=== PATIENT | male | born 1950 | race Caucasian/White ===

== ENCOUNTER 2021-04-04 16:10 | Inpatient (IN) | payer SELFPAY ==
[~2021-04-04] VITALS: Ht 175.3 cm; Wt 53.6 kg
[2021-04-04] MEDS ORDERED: NS 1,000 ML IV ONE (16:35)
[2021-04-04 16:53] LABS: BASO % 0.1 % (0.0-1.0); EOS % 0.1 % (0.0-3.0); HEMATOCRIT 31.4 % (42.0-52.0); HEMOGLOBIN 11.2 g/dl (13.5-17.5); LYMPH # 1.6 10^3/uL (1.5-5.0); LYMPH % 13.9 % (24.0-44.0); MEAN CORPUSCULAR HEMOGLOBIN 31.5 pg (27.0-33.0); MEAN CORPUSCULAR HGB CONC 35.7 g/dl (32.0-36.5); MEAN CORPUSCULAR VOLUME 88.2 fl (80.0-96.0); MONO # 0.8 10^3/uL (0.0-0.8); MONO % 6.7 % (2.0-8.0); NEUTROPHILS # 9.2 10^3/uL (1.5-8.5); NEUTROPHILS % 78.7 % (36.0-66.0); PLATELET COUNT, AUTOMATED 288 10^3/uL (150-450); RED BLOOD COUNT 3.56 10^6/uL (4.30-6.10); WHITE BLOOD COUNT 11.7 10^3/uL (4.0-10.0)
--- NOTE | 2021-04-04 17:28 | ECGEPIP ---
[facility] - ED Test Date: 2021-04-04 Pat Name: JEREMI TOMLIN Department: Room: - Gender: Male Barn Hand: GERMAIN : 1950 Requested By: STEPHANIE CURRAN Order Number: [id number] Reading MD: Cordelia Han Measurements Intervals Wiseman Rate: 70 P: 80 OK: 130 QRS: -62 QRSD: 122 T: 40 QT: 384 QTc: 414 Interpretive Statements Normal sinus rhythm Left axis deviation Right bundle branch block Possible Anteroseptal infarct , age undetermined NSTTW abnormalities No prior Electronically Signed on 04-04-2021 17:28:30 EST by Cordelia Han
[2021-04-04 17:34] LABS: ACETAMINOPHEN LEVEL < 2.0 UG/ML (10.0-30.0); ALBUMIN 1.9 GM/DL (3.2-5.2); ALT/SGPT 23 U/L (12-78); BILIRUBIN,DIRECT 0.2 MG/DL (0.0-0.2); BILIRUBIN,TOTAL 0.5 MG/DL (0.2-1.0); SALICYLATE LEVEL < 1.7 MG/DL (5.0-30.0); TOTAL PROTEIN 6.3 GM/DL (6.4-8.2)
[2021-04-04 17:35] LABS: ETHYL ALCOHOL (ETHANOL) < 0.003 % (0.000-0.010)
--- NOTE | 2021-04-04 17:35 | REP ---
INDICATION: Altered Mental Status. COMPARISON: None. TECHNIQUE: Portable AP chest image was obtained. FINDINGS: There is pleural-parenchymal scarring in both lung apices. The lungs are otherwise clear. The heart borders and mediastinum are normal. The visualized abdomen is unremarkable. IMPRESSION: No evidence of acute cardiopulmonary pathology. <Electronically signed by Donny Wells > 04/04/21 [id number]
--- OUTSIDE RECORDS SUMMARY | 2021-04-04 17:58 | CCD ---
Author Author [facility] Address Unknown Phone Unavailable Support Name Relationship Address Phone RE Next Of Kin Unknown Unavailable IGLESIA TIJERINA Next Of Kin [address] [place] [address] Re-disclosure Warning The records that you are about to access may contain information from federally-assisted alcohol or drug abuse programs. If such information is present, then the following federally mandated warning applies: This information has been disclosed to you from records protected by federal confidentiality rules (42 CFR part 2). The federal rules prohibit you from making any further disclosure of this information unless further disclosure is expressly permitted by the written consent of the person to whom it pertains or as otherwise permitted by 42 CFR part 2. A general authorization for the release of medical or other information is NOT sufficient for this purpose. The Federal rules restrict any use of the information to criminally investigate or prosecute any alcohol or drug abuse patient.The records that you are about to access may contain highly sensitive health information, the redisclosure of which is protected by Article 27-F of the [facility] Public Health law. If you continue you may have access to information: Regarding HIV / AIDS; Provided by facilities licensed or operated by the [facility] Office of Mental Health; or Provided by the [facility] Office for People With Developmental Disabilities. If such information is present, then the following [facility] mandated warning applies: This information has been disclosed to you from confidential records which are protected by state law. State law prohibits you from making any further disclosure of this information without the specific written consent of the person to whom it pertains, or as otherwise permitted by law. Any unauthorized further disclosure in violation of state law may result in a fine or assisted sentence or both. A general authorization for the release of medical or other information is NOT sufficient authorization for further disc losure. Medications No Information Insurance Providers Payer name Policy type / Coverage type Policy ID Covered libertarian ID Covered libertarian's relationship to osorio Policy Osorio Plan Information SELF PAY SP Problems, Conditions, and Diagnoses No Information Surgeries/Procedures No Information Results No Information Social History No Information
[2021-04-04 18:00] LABS: OSMOLALITY SERUM 290 MOSM/KG (280-301)
--- NOTE | 2021-04-04 18:16 | REPVR ---
PROCEDURE INFORMATION: Exam: CT Head Without Contrast Exam date and time: 04/04/2021 5:22 PM Age: 71 years old Clinical indication: Altered mental status/memory loss; Additional info: AMS TECHNIQUE: Imaging protocol: Computed tomography of the head without contrast. Radiation optimization: All CT scans at this facility use at least one of these dose optimization techniques: automated exposure control; mA and/or kV adjustment per patient size (includes targeted exams where dose is matched to clinical indication); or iterative reconstruction. COMPARISON: No relevant prior studies available. FINDINGS: Brain: There is a large area of old stroke involving the left temporal lobe, left parietal lobe and left external capsule and insular cortex. There is no evidence of intracranial bleed. Cerebral ventricles: There is enlargement of the left lateral ventricle secondary to atrophy. Paranasal sinuses: There is prominent mucosal thickening of the frontal sinuses with some secretions. There is opacification the right and left nasal airway which may be a combination of mucosal thickening and underlying polyps. Clinical correlation with direct visualization would be helpful. Mastoid air cells: Visualized mastoid air cells are well aerated. Bones/joints: Unremarkable. No acute fracture. Soft tissues: Unremarkable. IMPRESSION: 1. Large area of old stroke with extreme atrophy left temporal lobe and parietal lobe and including the insular cortex and external capsule. 2. No evidence of acute bleed. Electronically signed by: Sampson Pradhan On 04/04/2021 18:16:03 PM
--- NOTE | 2021-04-04 18:28 | REPVR ---
PROCEDURE INFORMATION: Exam: CT Abdomen And Pelvis Without Contrast Exam date and time: 04/04/2021 5:22 PM Age: 71 years old Clinical indication: Other: Abdominal discomfort; ? Lg inguinal/scrotal hernia/mass TECHNIQUE: Imaging protocol: Computed tomography of the abdomen and pelvis without contrast. Radiation optimization: All CT scans at this facility use at least one of these dose optimization techniques: automated exposure control; mA and/or kV adjustment per patient size (includes targeted exams where dose is matched to clinical indication); or iterative reconstruction. COMPARISON: No relevant prior studies available. FINDINGS: Lungs: Bibasilar nodular ground-glass and semi solid parenchymal infiltrates. Findings may represent presence of a multifocal pneumonitis to be correlated clinically. Diaphragm: A small hiatal hernia is present. Liver: Normal. No mass. Gallbladder and bile ducts: Normal. No calcified stones. No ductal dilation. Pancreas: Normal. No ductal dilation. Spleen: There is mild splenomegaly with a maximum span of 13.5 centimeters. No focal abnormalities demonstrated. Adrenal glands: Normal. No mass. Kidneys and ureters: Marked right-sided hydroureteronephrosis with obstruction demonstrated distally likely related to the presence of entrapment within a large right inguinal hernia. Marked left-sided hydroureteronephrosis with obstruction of the distal ureter inside of a massive left inguinal hernia. See below. Stomach and bowel: Unremarkable. No obstruction. No mucosal thickening. Appendix: No evidence of appendicitis. Intraperitoneal space: Unremarkable. No free air. No significant fluid collection. Vasculature: The aortoiliac vessels demonstrate mild atherosclerotic calcification. Lymph nodes: Unremarkable. No enlarged lymph nodes. Urinary bladder: Unremarkable as visualized. Reproductive: The prostate gland demonstrates marked hyperplasia. Clinical correlation to exclude prostate neoplasm suggested. Bones/joints: Unremarkable. No acute fracture. Soft tissues: Massive left inguinal hernia containing both small and large bowel. Incarceration not excluded. Large right inguinal hernia containing portion of the urinary bladder as well as the distal right ureter and possibly collapsed bowel. There is soft tissue edema demonstrated in the abdominal wall, flanks and buttock regions consistent with anasarca. Other findings: Inflammatory changes demonstrated in the perinephric spaces bilaterally. Finding may be chronic although clinical correlation to exclude acute inflammatory changes including infection suggested. Cachexia. IMPRESSION: 1. Bibasilar nodular ground-glass and semi solid parenchymal infiltrates. Findings may represent presence of a multifocal pneumonitis to be correlated clinically. 2. There is mild splenomegaly with a maximum span of 13.5 centimeters. No focal abnormalities demonstrated. 3. A small hiatal hernia is present. 4. Massive left inguinal hernia containing both small and large bowel. Incarceration not excluded. 5. Large right inguinal hernia containing portion of the urinary bladder as well as the distal right ureter and possibly collapsed bowel. 6. The prostate gland demonstrates marked hyperplasia. Clinical correlation to exclude prostate neoplasm suggested. Marked prostatic hyperplasia. 7. Inflammatory changes demonstrated in the perinephric spaces bilaterally. Finding may be chronic although clinical correlation to exclude acute inflammatory changes including infection suggested. 8. Anasarca. Electronically signed by: Rick Muñoz On 04/04/2021 18:28:21 PM
[2021-04-04] MEDS ORDERED: LIDOCAINE 2% 5ML JELLY UROJET TOP ONE (18:50)
[2021-04-04] MEDS ORDERED: cefTRIAXone SOD 1 GM in D5W MINI-BAG PLUS 50 ML IV ONE (19:10)
[2021-04-04 19:49] LABS: AMPHETAMINES LEVEL URINE NEGATIVE (NEGATIVE); BARBITURATES URINE NEGATIVE (NEGATIVE); BENZODIAZEPINES URINE NEGATIVE (NEGATIVE); CANNABINOIDS URINE NEGATIVE (NEGATIVE); COCAINE METABOLITE URINE NEGATIVE (NEGATIVE); METHADONE URINE NEGATIVE (NEGATIVE); OPIATES URINE NEGATIVE (NEGATIVE); PHENCYCLIDINE URINE NEGATIVE (NEGATIVE)
[2021-04-04] MEDS ORDERED: HOME MED LIST COMPLETE! XX SCH (20:15)
[2021-04-04] MEDS ORDERED: IPRATROPIUM 0.5MG/ALBUTEROL 2.5MG INH SOL UD 3ML (DUONEB) NEB PRN (20:40)
[2021-04-04] MEDS ORDERED: ACETAMINOPHEN TAB 650MG DOSE (2X325MG) PO PRN (20:40)
--- OUTSIDE RECORDS SUMMARY | 2021-04-04 21:17 | CCD ---
Author [facility] Address Unknown Phone Unavailable Support Name Relationship Address Phone RE Next Of Kin Unknown Unavailable IGLESIA TIJERINA Next Of Kin [address] [place] [address] Re-disclosure Warning The records that [...] is protected by Article 27-F of the [facility] Public Health law. If you continue you may have access to information: Regarding HIV / AIDS; Provided by facilities licensed or operated by the [facility] Office of Mental Health; or Provided by the [facility] Office for People With Developmental Disabilities. If such information is present, then the following [facility] mandated warning applies: This information has been [...] law may result in a fine or skilled nursing sentence or both. A general authorization for [...]
[2021-04-04] MEDS ORDERED: ONDANSETRON 4MG/2ML VIAL IV PRN (22:20)
[2021-04-04] MEDS ORDERED: guaiFENesin ER 600 MG TAB PO PRN (22:25)
[2021-04-04 22:42] LABS: INR 1.16; PROTHROMBIN TIME 15.2 SECONDS (12.7-14.5)
[2021-04-04 22:43] LABS: PARTIAL THROMBOPLASTIN TIME 42.5 SECONDS (25.9-37.0)
[2021-04-04 22:45] LABS: D-DIMER QUANT 1192.79 ng/ml (<500)
[2021-04-04 22:55] LABS: C REACTIVE PROTEIN QUANTITATIV 7.48 MG/DL (0.00-0.30)
[2021-04-04] MEDS: MORPHINE 2 MG/ML 1ML VIAL (J2270) IV PRN (23:15)
--- NOTE | 2021-04-04 23:31 | HPEPDOC ---
General Date of Admission Apr 04, 2021 at 20:41 Date of Service: Apr 04, 2021 Chief Complaint The patient is a 71-year-old male admitted with a reason for visit of Covid 19, Uti Urinary Tract Infection. Source: Family History of Present Illness Elijah Moran is a 71-year-old male with unknown medical history. Patient arrives with complaints of abdominal and generalized pain. Patient's daughter, Sabi, at bedside also endorses patient confusion and she assist with HPI. Reportedly, patient has not seen a physician since the 1970s. He reportedly has had an abdominal mass/hernia for the past 20 to 30 years. Patient had an acute mental status change in March 2018 and refused any medical services or work- up. His baseline since March 2018 has been some described expressive aphasia and memory deficits. Progressively over time, the abdominal mass has also caused some discomfort for patient to where he typically needs to use compressive garments or manually support the area in order to urinate and he does have significant constipation. Patient is not on any medications at baseline. Patient is alert and he is oriented x1-2. He requires frequent reminding regarding situation/careplan. Patient is able to say who he is, date of as well as that he is in the hospital. He is able to say the year but he describes instead of saying March he had said the numbers "[id number]". Patient is able to express his wishes but situationally limited to discuss current ongoings in hospital as well as poor historian. Reportedly, patient lives with son. Pt's son and the daughter (Sabi) assist with patient's needs such as grocery shopping, but she describes patient is able to shower by himself as well as able to microwave his own food in his bedroom. She does endorse at baseline he has trouble with stairs at times mostly related to the large abdominal hernia. In the past week, patient's son had URI type symptoms. Patient then started having some generalized fatigue and appeared to have a more challenging time doing his regular routine; requiring further assistance from son and daughter. Daughter reports over the past few days the patient has required more assistance remembering things and patient reported increased abdominal discomfort and requested to go to the hospital in order to not be in pain. Daughter does endorse patient has constipation and difficulty emptying his bladder as well as episodes of incontinence. She reports over the past 3 months patient has has been losing weight and progressively worsening appetite "only eats 3 bites of pudding" or "eating the amount of a single serving of macaroni and cheese over the span of 3 days". Patient's daughter reports that typically patient has "poor breathing" and describes a history of patient smoking but no definitive COPD diagnosis; she cannot say patient has had increased challenges in his breathing recently. Of note, patient febrile, normotensive and not tachycardic or tachypneic. WBC elevated. Initial lab work remarkable for creatinine 2, BUN 27, hgb11.2, hct 31.4, neg tox screen. UA positive, Miguel placed to assist with urinary retention and hazy yellow urine output. PCR positive Covid, chest x-ray nonacute. CT head nonacute however did show "large area of old stroke with extreme atrophy left temporal lobe and parietal lobe and including the insular cortex and external capsule". CT abdomen pelvis completed and showed several findings to include: Groundglass infiltrates, mild splenomegaly, hiatal hernia, massive left inguinal hernia con taining both small and large bowel and could not exclude incarceration; right inguinal hernia containing portion of urinary bladder as well as distal right ureter and possibly collapsed bowel, hyperplasia of the prostate gland, inflammatory changes of perinephric spaces, anasarca. ED consulted surgery Dr. Bansal and no acute interventions planned and consult for a.m. Patient will be admitted for further evaluation management presenting concerns Home Medications No Active Prescriptions or Reported Meds Allergies Coded Allergies: Penicillins (Verified Allergy, Unknown, 04/04/21) Past Medical History Medical History Former smoker Surgical History Unknown Family History Significant Family History: Cancer, Other (Alzheimer's) Grandfatherprostate cancer, sisterlung cancer Social History * Smoker: former Smoker Alcohol: Denies Recent Travel/Sick Contacts: Reports: Recent sick contacts (Patient son); Denies: Recent travel Patient retired from [employer]. Patient lives with son. At baseline patient is able to care for himself with ADLs; ambulates unassisted however requires compressive garments to assist with the mass/hernia of the abdomen. A-FIB/CHADSVASC A-FIB History Current/History of A-Fib/PAF?: No Current PO Anticoag Therapy: No Review of Systems Constitutional: Reports: Chills, Fever, Fatigue, Weight Loss; Denies: Night Sweats Eyes: Denies: Pain, Vision change ENT: Denies: Head Aches, Ear Pain, Dysphagia Skin: Denies: Rash, Lesions, Breakdown Pulmonary: Reports: Cough; Denies: Dyspnea Cardiovascular: Denies: Chest Pain, Palpitations, Orthopnea, Paroxysmal Noc. Dyspnea, Lt Headedness Gastrointestinal: Reports: Abdominal Pain, Constipation; Denies: Nausea, Vomiting, Diarrhea Genitourinary: Reports: Incontinence, Retention; Denies: Dysuria, Frequency Hematologic: Denies: Bruising, Bleeding Excessively Musculoskeletal: Denies: Neck Pain, Back Pain, Joint Pain, Muscle Pain, Spasms Neurological: Denies: Weakness, Numbness, Change in speech, Confusion Psych: Reports: Mood Normal; Denies: Depression, Memory Issues Physical Examination General Exam: Positive: Alert, Cooperative, No Acute Distress Eye Exam: Positive: PERRLA, Conjunctiva & lids normal, EOMI; Negative: Sclera icteric ENT Exam: Positive: Atraumatic, Mucous membr. moist/pink, Pharynx Normal Neck Exam: Positive: Supple; Negative: JVD, thyromegaly Chest Exam: Positive: Diminished Heart Exam: Positive: Rate Normal, Regular Rhythm, Normal S1, Normal S2; Negative: Murmurs, Rubs Telemetry: Positive: No significant arrhythmia Abdomen Exam: Positive: Normal bowel sounds, Soft, Tenderness, Hernia (bilateral inguinal; Left LARGE ); Negative: Hepatospenomegaly Extremity Exam: Positive: Normal pulses; Negative: Clubbing, Cyanosis, Edema Skin Exam: Positive: Nl turgor and temperature; Negative: Breakdown, Lesion Neuro Exam: Positive: Normal Gait, Normal Speech, Cranial Nerves 3-12 NL, Reflexes 2+ Psych Exam: Positive: Mood NL; Negative: Mental status NL (short and distant memory deficits, expressive aphasia; ox1-2), Oriented x 3 Vital Signs Vital Signs Date Time Temp Pulse Resp B/P (MAP) Pulse Ox O2 Delivery O2 Flow Rate FiO2 04/04/21 21:15 18 111/61 (78) 04/04/21 21:05 75 92 04/04/21 19:25 Room Air Laboratory Data Labs 24H Laboratory Tests 2 04/04/21 16:41: Immature Granulocyte % (Auto) 0.5, Neutrophils (%) (Auto) 78.7H, Lymphocytes (%) (Auto) 13.9L, Monocytes (%) (Auto) 6.7, Eosinophils (%) (Auto) 0.1, Basophils (%) (Auto) 0.1, Neutrophils # (Auto) 9.2H, Lymphocytes # (Auto) 1.6, Monocytes # (Auto) 0.8, Eosinophils # (Auto) 0.0, Basophils # (Auto) 0.0, Nucleated Red Blood Cells % (auto) 0.0, Osmolality 290, Total Bilirubin 0.5, Direct Bilirubin 0.2, Aspartate Amino Transf (AST/SGOT) 36, Alanine Aminotransferase (ALT/SGPT) 23, Alkaline Phosphatase 67, Ammonia 24, Total Protein 6.3L, Albumin 1.9L, Albumin/Globulin Ratio 0.4, Thyroid Stimulating Hormone (TSH) 1.200, Salicylates Level < 1.7L, Acetaminophen Level < 2.0L, Ethyl Alcohol Level < 0.003 04/04/21 16:42: Lactic Acid Level 1.4 04/04/21 16:48: POC Glucose (Misc Panel) 84, POC Sodium (Misc Panel) 139, POC Potassium (Misc Panel) 3.8, POC Chloride (Misc Panel) 106, POC Total CO2 (Misc Panel) 21.0L, POC Blood Urea Nitrogen (Misc Panel 27H, POC Ionized Calcium (Misc Panel) 4.2L, POC Creatinine (Misc Panel) 2.0H, POC Hematocrit (Misc Panel) 29.0L 04/04/21 19:06: Urine Color YELLOW, Urine Appearance TURBIDH, Urine pH 6.0, Urine Specific Gravi ty 1.006, Urine Protein 1+H, Urine Glucose (UA) NEGATIVE, Urine Ketones NEGATIVE, Urine Blood 3+H, Urine Nitrite POSITIVEH, Urine Bilirubin NEGATIVE, Urine Urobilinogen 0.2, Urine Leukocyte Esterase 3+H, Urine WBC (Auto) TNTCH, Urine RBC (Auto) 67H, Urine Hyaline Casts (Auto) 0, Urine Bacteria (Auto) 2+H, Urine Squamous Epithelial Cells 0, Urine Sperm (Auto) , Urine Opiates Screen NEGATIVE, Urine Methadone Screen NEGATIVE, Urine Barbiturates Screen NEGATIVE, Urine Phencyclidine Screen NEGATIVE, Urine Amphetamines Screen NEGATIVE, Urine Benzodiazepines Screen NEGATIVE, Urine Cocaine Metabolite Screen NEGATIVE, Urine Cannabinoids Screen NEGATIVE 04/04/21 21:57: CBC/BMP Laboratory Tests 04/04/21 16:41 Microbiology Microbiology 04/04/21 Blood Culture, Received Pending 04/04/21 Urine Culture, Received Pending 04/04/21 Respiratory Virus Panel (PCR) (ANEL) - Final, Complete SARS-CoV-2 (COVID 19) 04/04/21 Blood Culture, Received Pending Assessment/Plan 1. Encephalopathy: In setting of UTI, Covid and history of CVA with expressive aphasia residual -CT head nonacute, patient without focal weakness or sensory changes; but does have expressive aphasia however this is described as baseline since acute change in March 2018 likely when patient had his large CVA. -Anticipate treating below will assist in patient's mentation; consider further neuro work-up accordingly 2. Left massive inguinal hernia and large right inguinal hernia: -Miguel placement, bowel regimen to assist with patient's constipation -Analgesics as needed -Appreciate further recommendations from surgery Dr. Bansal in a.m.; Consulted in ED. 3. Covid positive: In former smoker and presumed underlying COPD. Chest x-ray nonacute, but CT did tile picker infiltrates bilaterally. Patient tolerating room air. -Monitor pt, respiratory status -Oxygen to keep SPO2 88-92% -Antitussives prn -As needed breathing treatments -Covid baseline admission labs to be drawn: ferritin, procalc, trop, ldh, btnp, ck, crp, coags per protocol and f/u accordingly -A.m. labs -If patient develops elevated procalcitonin consider empiric coverage -Discussed Mab with patient and daughter. Patient with risk factors. Should patient and family member agree to Mab, will order for a.m. 4. UTI and urinary retention: Likely urinary retention given hernia above; predisposing to UTI -Monitor for signs symptoms worsening infection. Lactic 1.4 upon arrival unfortunately patient not tachycardic and normotensive. -Empiric coverage, follow-up culture for adjustment -A.m. labs -Urology not presently consulted; consider consult in a.m. for further recommendations inpatient versus outpatient 5. Elevated creatinine: Unknown baseline; upon admission POC creatinine 2 with elevated BUN 27; in setting of poor p.o., UTI and urinary retention -Monitor fluid balance, I's and O's, urinary output -Hydrate with consideration -Avoid nephrotoxins as able -A.m. labs 6. Protein malnutrition: In setting of abdominal discomfort with above poor p.o . intake -Nutritional consult appreciated once surgical recommendations made 7. Deconditioned elder: Patient reportedly can walk at baseline however given the increasing pain of his hernia and generalized fatigue with Covid he has had increased trouble with ambulation due to condition limitations. -Pending pain control and treatment above patient would benefit from physical therapy 8. CT finding: Questionable neoplasm of the prostate. Patient does have familial history of prostate cancer. Miguel with yellow urine output, no hematuria appreciated. -Encourage patient follow-up with urology upon discharge for further w/u 9. Pt /family centered care: Daughter Sabi can be reached at [phone]. During admission process pt turns to her frequently for explanation and reminders of the careplan and her presence does appear comforting to pt. -Encourage pt expression and facilitate updates to family regarding careplan given visitation limited with pandemic policy. DVT Px: Hep SQ CODE STATUS: Patient confirms DNR/DNI; he reports that " if I , let me go". He readily states "no CPR" and "No" when asked about breathing tube. Patient reportedly has had strong feelings about DNR/DNI for many years, however no definitive POA paperwork present for Daughter. Described" At one point papers all over house about DNR/DNI". Daughter at bedside confirms as next of kin she respects patient wishes for DNR/DNI. Disposition planning: Home pending patient response and surgical recommendations Plan / VTE VTE Prophylaxis Ordered?: Yes KEHINDE PA NP Apr 04, 2021 22:37
[2021-04-05] VITALS (9 sets, daily range): BP systolic 110–125; BP diastolic 58–90; O2SAT 95–96
[2021-04-05 07:07] LABS: BASO % 0.2 % (0.0-1.0); HEMATOCRIT 33.8 % (42.0-52.0); HEMOGLOBIN 11.8 g/dl (13.5-17.5); LYMPH # 1.3 10^3/uL (1.5-5.0); LYMPH % 11.3 % (24.0-44.0); MEAN CORPUSCULAR HEMOGLOBIN 31.6 pg (27.0-33.0); MEAN CORPUSCULAR HGB CONC 34.9 g/dl (32.0-36.5); MEAN CORPUSCULAR VOLUME 90.4 fl (80.0-96.0); MONO # 0.8 10^3/uL (0.0-0.8); MONO % 6.8 % (2.0-8.0); NEUTROPHILS # 9.1 10^3/uL (1.5-8.5); NEUTROPHILS % 80.8 % (36.0-66.0); PLATELET COUNT, AUTOMATED 281 10^3/uL (150-450); RED BLOOD COUNT 3.74 10^6/uL (4.30-6.10); WHITE BLOOD COUNT 11.2 10^3/uL (4.0-10.0)
[2021-04-05 07:54] LABS: CALCIUM LEVEL 7.8 MG/DL (8.8-10.2); CREATININE FOR GFR 1.78 MG/DL (0.70-1.30); GLOMERULAR FILTRATION RATE 40.1 (>42); POTASSIUM SERUM 4.4 MEQ/L (3.5-5.1)
[2021-04-05] MEDS: HEPARIN SOD (PORCINE) 5000UNITS/ML 1ML VIAL/SYRINGE SQ SCH ×2 (07:59→19:53)
[2021-04-05] MEDS: LACTOBACILLUS ACIDOPHILUS CAP (BACID) PO SCH (07:59)
[2021-04-05] MEDS ORDERED: BISACODYL 5 MG TAB PO SCH (09:00)
[2021-04-05] MEDS ORDERED: ALBUTEROL 90 MCG/ACT 8GM HFA INHALER INH PRN (11:20)
[2021-04-05] MEDS ORDERED: CASIRIVIMAB/IMDEVIMAB 1,200 MG in NS 250 ML IV ONE (11:20)
[2021-04-05] MEDS: MIRALAX *UNIT DOSE* 17GM PACKET PO SCH ×2 (12:53→19:53)
[2021-04-05] MEDS: MORPHINE 2 MG/ML 1ML VIAL (J2270) IV PRN (12:53)
[2021-04-05] MEDS ORDERED: methylPREDNISolone 125MG 2ML VIAL IV PRN (13:00)
[2021-04-05] MEDS ORDERED: ALBUTEROL SULFATE 2.5 MG/0.5 ML INH NEB SOLN INH PRN (13:00)
[2021-04-05] MEDS ORDERED: diphenhydrAMINE 50MG/ML VIAL (J1200) IV PRN (13:00)
[2021-04-05] MEDS ORDERED: NS 1,000 ML IV SCH (13:00)
[2021-04-05] MEDS ORDERED: CASIRIVIMAB (REGN10933) 600 MG, IMDEVIMAB (REGN10987) 600 MG in NS 250 ML IV ONE (13:00)
[2021-04-05] MEDS ORDERED: EPINEPHrine INJ 1 MG/ML 1ML AMP IM PRN (13:00)
--- NOTE | 2021-04-05 13:38 | IPNPDOC ---
Text Note Date of Service The patient was seen on 04/05/21. NOTE Subjective: This is hospital day 2 for patient with no known medical history. Patient presented with abdominal discomfort and was found to have a UTI per urinalysis in the ED. Patient was also found to be Covid positive. Patient is a former smoker and presumed underlying COPD, however patient has not been seen by healthcare professionals since . Surgery was consulted while the patient was in the ED, and surgery did not state that the patient needs to be operated on just yet. Objective: Vital signs: See below General: Patient is in no acute distress at this time however resists from any sudden movement due to abdominal discomfort. Patient is alert and oriented x4 to self, place, time, and situation. However patient does have expressive aphasia that started in 2018 per notes, and patient is able to tell me this as well. HEENT: Normocephalic, atraumatic, moist mucous membranes. Neck: No lymphadenopathy or thyromegaly Cardiac: Regular rate and rhythm, no murmurs, normal S1, normal S2 Pulm: Coarse respiratory sounds bibasilar. No wheezes, rhonchi. Rales in right lower lobe region. Abd: Large inguinal hernia present. Ext: Mild edema of bilateral lower extremities. Assessment/plan: 71-year-old male without a medical history because he has not been seen since the , presents with abdominal discomfort. His clinical picture is complicated by bilateral inguinal hernias present for the past 20 to 30 years. #UTI Continue ceftriaxone Continue to monitor intake and output daily #Bilateral inguinal hernias Surgery was consulted, who stated that the patient will be seen in the outpatient setting with Dr. Caal. Patient has not had a bowel movement since admission MiraLAX twice daily has been ordered to ensure stool output Dulcolax daily as needed for constipation. #Covid pneumonia Oxygen therapy titration as needed Patient is oxygenating well on room air at this time. Monoclonal antibody transfusion ordered Procalcitonin on admission was 0.17, antibiotics not being considered at this time CRP level 7.48, ferritin level 1606 upon admission #RAJWINDER Admission gjclw-dv-duhr creatinine level 2, baseline unknown Continue to monitor I's and O's Continue to monitor urinary output Avoid nephrotoxic agents #Poor oral intake High-fiber diet due to possibility of incarceration of hernia #Deconditioning Patient is able to ambulate at baseline Consider physical therapy #Questionable neoplasm of prostate on CT Consider follow-up with urology upon discharge #Patient/family centered care Daughter, Tonya, to be reached at [phone]. DVT prophylaxis: Heparin subcutaneous CODE STATUS: DNR/DNI Disposition: Awaiting clinical improvement. VS,Fishbone, I+O VS, Fishbone, I+O Laboratory Tests 04/04/21 16:41 04/05/21 06:12 Vital Signs Date Time Temp Pulse Resp B/P (MAP) Pulse Ox O2 Delivery O2 Flow Rate FiO2 04/05/21 08:00 96 Room Air 04/05/21 04:00 98.2 75 18 110/58 (75) I&O- Last 24 Hours up to 6 AM 04/05/21 06:00 Intake Total 1200 ml Output Total 1375 ml Balance -175 ml GME ATTESTATION GME ATTESTATION My faculty preceptor for this patient encounter was physically present during the encounter and was fully available. All aspects of the patient interview, examination, medical decision making process, and medical care plan development were reviewed and approved by the faculty preceptor. The faculty preceptor is aware and concurs with the plan as stated in the body of this note and will attest to such by his/her cosignature. ATTENDING NOTE I, Cole Cabezas MD, have independently examined this patient and performed my own physical exam, as well as reviewed the documentation and edited where necessary. I have discussed in detail with the resident / student the findings and plan of treatment as documented by the resident / student and edited their note. I agree with their findings and treatment plan and have edited their documentation. Frantz Fuentes DO Apr 05, 2021 13:38 COLE CABEZAS MD Apr 08, 2021 12:57
[2021-04-05] MEDS: cefTRIAXone SOD 1 GM in D5W MINI-BAG PLUS 50 ML IV SCH (19:53)
[2021-04-06 04:00] VITALS: BP 115/63
[2021-04-06 07:43] LABS: BASO % 0.1 % (0.0-1.0); HEMATOCRIT 34.4 % (42.0-52.0); LYMPH # 1.5 10^3/uL (1.5-5.0); LYMPH % 13.1 % (24.0-44.0); MEAN CORPUSCULAR HEMOGLOBIN 31.1 pg (27.0-33.0); MEAN CORPUSCULAR HGB CONC 34.9 g/dl (32.0-36.5); MEAN CORPUSCULAR VOLUME 89.1 fl (80.0-96.0); MONO # 0.7 10^3/uL (0.0-0.8); NEUTROPHILS # 8.9 10^3/uL (1.5-8.5); NEUTROPHILS % 80.1 % (36.0-66.0); PLATELET COUNT, AUTOMATED 330 10^3/uL (150-450); RED BLOOD COUNT 3.86 10^6/uL (4.30-6.10); WHITE BLOOD COUNT 11.1 10^3/uL (4.0-10.0)
[2021-04-06 07:50] LABS: INR 1.12; PROTHROMBIN TIME 14.8 SECONDS (12.7-14.5)
[2021-04-06 07:52] LABS: PARTIAL THROMBOPLASTIN TIME 44.7 SECONDS (25.9-37.0)
[2021-04-06 08:00] VITALS: O2SAT 92
--- NOTE | 2021-04-06 08:25 | IPNPDOC ---
Text Note Date of Service The patient was seen on 04/06/21. NOTE Subjective: This is hospital day 3 for patient with no known medical history. Patient presented with abdominal discomfort and was found to have a UTI per urinalysis in the ED. Patient was also found to be Covid positive. Patient reports that he would appreciate oatmeal for all 3 meals of the day. He had a bowel movement yesterday, but reports that he still feels like he needs to void and is unable to. He reports less her abdominal discomfort however is holding a diaper to the inguinal area due to some urinary leakage around the Miguel catheter. Patient received monoclonal antibody transfusion for Covid yesterday without any complications. Objective: Vital signs: See below General: Patient is in no acute distress at this time however resists from any sudden movement due to abdominal discomfort. Patient is alert and oriented x4 to self, place, time, and situation. However patient does have expressive aphasia that started in 2018 per notes, and patient is able to tell me this as well. HEENT: Normocephalic, atraumatic, moist mucous membranes. Neck: No lymphadenopathy or thyromegaly Cardiac: Regular rate and rhythm, no murmurs, normal S1, normal S2 Pulm: Coarse respiratory sounds bibasilar. No wheezes, rhonchi. Rales in right lower lobe region. Abd: Large bilateral inguinal hernias present. Ext: No edema of bilateral legs present. Assessment/plan: 71-year-old male without a medical history because he has not been seen since the 1970s, presents with abdominal discomfort. His clinical picture is complicated by bilateral inguinal hernias present for the past 20 to 30 years. #UTI Continue ceftriaxone, antibiotic day 2. Urine culture shows E. coli growth sensitive to ceftriaxone. Continue to monitor intake and output daily #Bilateral inguinal hernias Surgery was consulted, who stated that the patient will be seen in the outpatient setting by Dr. Caal, upon discharge. MiraLAX twice daily has been ordered to ensure stool output Dulcolax daily as needed for constipation. #Covid pneumonia Oxygen therapy titration as needed Patient is oxygenating well on room air at this time. Monoclonal antibody transfused Procalcitonin on admission was 0.17 CRP level 7.48, ferritin level 1606 upon admission, consistent with Covid #RAJWINDER Admission kmfgh-fz-hefv creatinine level 2, baseline unknown Continue to monitor I's and O's Continue to monitor urinary output Avoid nephrotoxic agents #Poor oral intake Low residue diet due to possibility of incarceration of hernia #Deconditioning Patient is able to ambulate at baseline Consider physical therapy #Questionable neoplasm of prostate on CT Consider follow-up with urology upon discharge #Patient/family centered care DaughterTonya, to be reached at [phone]. DVT prophylaxis: Heparin subcutaneous CODE STATUS: DNR/DNI Disposition: Inpt status. Awaiting clinical improvement. VS,Fishbone, I+O VS, Fishbone, I+O Laboratory Tests 04/06/21 06:34 Vital Signs Date Time Temp Pulse Resp B/P (MAP) Pulse Ox O2 Delivery O2 Flow Rate FiO2 04/06/21 04:00 97.0 76 18 115/63 (80) 96 Room Air I&O- Last 24 Hours up to 6 AM 04/06/21 05:59 Intake Total 730 ml Output Total 1325 ml Balance -595 ml GME ATTESTATION GME ATTESTATION My faculty preceptor for this patient encounter was physically present during the encounter and was fully available. All aspects of the patient interview, examination, medical decision making process, and medical care plan development were reviewed and approved by the faculty preceptor. The faculty preceptor is a garcia and concurs with the plan as stated in the body of this note and will attest to such by his/her cosignature. ATTENDING NOTE I, Cole Bell MD, have independently examined this patient and performed my own physical exam, as well as reviewed the documentation and edited where necessary. I have discussed in detail with the resident / student the findings and plan of treatment as documented by the resident / student and edited their note. I agree with their findings and treatment plan and have edited their documentation. Frantz Fuentes DO Apr 06, 2021 08:25 COLE BELL MD Apr 08, 2021 12:56
[2021-04-06 08:29] LABS: ALBUMIN 1.7 GM/DL (3.2-5.2); BILIRUBIN,DIRECT 0.2 MG/DL (0.0-0.2); BILIRUBIN,TOTAL 0.6 MG/DL (0.2-1.0); CALCIUM LEVEL 8.3 MG/DL (8.8-10.2); CREATININE FOR GFR 1.63 MG/DL (0.70-1.30); GLOMERULAR FILTRATION RATE 44.4 (>42); MAGNESIUM LEVEL 2.2 MG/DL (1.8-2.4); POTASSIUM SERUM 4.5 MEQ/L (3.5-5.1); TOTAL PROTEIN 6.8 GM/DL (6.4-8.2)
[2021-04-06] MEDS ORDERED: BISACODYL 5 MG TAB PO PRN (09:00)
[2021-04-06] MEDS: MIRALAX *UNIT DOSE* 17GM PACKET PO SCH ×2 (09:00→20:01)
[2021-04-06] MEDS: LACTOBACILLUS ACIDOPHILUS CAP (BACID) PO SCH (09:00)
[2021-04-06] MEDS: HEPARIN SOD (PORCINE) 5000UNITS/ML 1ML VIAL/SYRINGE SQ SCH ×2 (09:00→20:01)
[2021-04-06 14:00] VITALS: BP 128/73
[2021-04-06 16:00] VITALS: O2SAT 94
[2021-04-06] MEDS: cefTRIAXone SOD 1 GM in D5W MINI-BAG PLUS 50 ML IV SCH (20:01)
[2021-04-06 22:00] VITALS: BP 110/65
[2021-04-07] VITALS (8 sets, daily range): BP systolic 110–129; BP diastolic 61–72; O2SAT 95–97
[2021-04-07 07:20] LABS: BASO % 0.2 % (0.0-1.0); HEMATOCRIT 32.8 % (42.0-52.0); HEMOGLOBIN 11.5 g/dl (13.5-17.5); LYMPH # 1.5 10^3/uL (1.5-5.0); LYMPH % 15.3 % (24.0-44.0); MEAN CORPUSCULAR HEMOGLOBIN 31.3 pg (27.0-33.0); MEAN CORPUSCULAR HGB CONC 35.1 g/dl (32.0-36.5); MEAN CORPUSCULAR VOLUME 89.4 fl (80.0-96.0); MONO # 0.6 10^3/uL (0.0-0.8); MONO % 6.1 % (2.0-8.0); NEUTROPHILS # 7.5 10^3/uL (1.5-8.5); NEUTROPHILS % 77.7 % (36.0-66.0); PLATELET COUNT, AUTOMATED 354 10^3/uL (150-450); RED BLOOD COUNT 3.67 10^6/uL (4.30-6.10); WHITE BLOOD COUNT 9.7 10^3/uL (4.0-10.0)
[2021-04-07 07:49] LABS: CREATININE FOR GFR 1.66 MG/DL (0.70-1.30); GLOMERULAR FILTRATION RATE 43.4 (>42); POTASSIUM SERUM 3.9 MEQ/L (3.5-5.1)
--- NOTE | 2021-04-07 08:50 | IPNPDOC ---
Text Note Date of Service The patient was seen on 04/07/21. NOTE Subjective: This is hospital day 4 for patient with no known medical history. Patient presented with abdominal discomfort and was found to have a UTI per urinalysis in the ED. Patient was also found to be Covid positive. Patient reports that he would appreciate oatmeal for all 3 meals of the day. He had a bowel movement two days ago. He refused his miralax yesterday. General surgery spoke with the family yesterday who wants medical team meeting. Urology was consulted yesterday, who stated that if the patient is not having any urinary retention there is no indication for urology input at this time. Miguel catheter balloon was managed again yesterday and now there is no leak around the Miguel. Objective: Vital signs: See below General: Patient is in no acute distress at this time however resists from any sudden movement due to abdominal discomfort. Patient is alert and oriented x4 to self, place, time, and situation. However patient does have expressive aph homero that started in 2018 per notes, and patient is able to tell me this as well. HEENT: Normocephalic, atraumatic, moist mucous membranes. Neck: No lymphadenopathy or thyromegaly Cardiac: Regular rate and rhythm, no murmurs, normal S1, normal S2 Pulm: Coarse respiratory sounds bibasilar. No wheezes, rhonchi. Rales in right lower lobe region. Abd: Large bilateral inguinal hernias present. no abdominal tenderness, soft abdomen, non-distended. Ext: No edema of bilateral legs present. Assessment/plan: 71-year-old male without a medical history because he has not been seen since the 1970s, presents with abdominal discomfort. His clinical picture is complicated by bilateral inguinal hernias present for the past 20 to 30 years. #UTI Continue ceftriaxone, antibiotic day 3. Urine culture shows E. coli growth sensitive to ceftriaxone. Continue to monitor intake and output daily #Bilateral inguinal hernias Surgery was consulted, who stated that the patient will be seen in the outpatient setting by Dr. Caal, upon discharge. Continue to monitor stool output. MiraLAX twice daily has been ordered to ensure stool output Dulcolax daily as needed for constipation. Approximately around 4:30 PM on 04/07/2021, patient developed abdominal pain that he described as severe Patient was given 2 mg morphine IV Patient subsequently was unresponsive except to sternal rub with vital signs remaining stable (afebrile, normotensive, normal heart rate, oxygen saturation 96% on room air) Patient was given 0.4 mg Narcan, the symptoms subsided #Covid pneumonia Oxygen therapy titration as needed Patient is oxygenating well on room air at this time, and since admission. Monoclonal antibody transfused Procalcitonin on admission was 0.17 CRP level 7.48, ferritin level 1606 upon admission, increased to 2005 today, consistent with Covid #RAJWINDER, improving. Admission krpmt-ol-vzid creatinine level 2, baseline unknown Creatinine decreased to 1.66 Continue to monitor I's and O's Continue to monitor urinary output Avoid nephrotoxic agents #Poor oral intake Stop low residue diet due to possibility of incarceration of hernia, since patient developed abdominal pain around 4:30 PM Keep patient n.p.o. Administer D5 normal saline at maintenance dose 125 mL/h with follow-up glucose check at midnight. #Deconditioning Patient is able to ambulate at baseline Consider physical therapy #Questionable neoplasm of prostate on CT PSA 1800s. Urology consult placed. Consider follow-up with urology upon discharge #Patient/family centered care DaughterTonya, to be reached at [phone]. DVT prophylaxis: Heparin subcutaneous CODE STATUS: DNR/DNI Disposition: Inpt status. Awaiting clinical improvement. VS,Fishbone, I+O VS, Fishbone, I+O Laboratory Tests 04/07/21 06:17 Vital Signs Date Time Temp Pulse Resp B/P (MAP) Pulse Ox O2 Delivery O2 Flow Rate FiO2 04/07/21 06:00 96.9 66 20 112/63 (79) 96 Room Air I&O- Last 24 Hours up to 6 AM 04/07/21 06:00 Intake Total 1020 ml Output Total 1125 ml Balance -105 ml GME ATTESTATION GME ATTESTATION My faculty preceptor for this patient encounter was physically present during the encounter and was fully available. All aspects of the patient interview, examination, medical decision making process, and medical care plan development were reviewed and approved by the faculty preceptor. The faculty preceptor is aware and concurs with the plan as stated in the body of this note and will attest to such by his/her cosignature. ATTENDING NOTE I, Cole Bell MD, have independently examined this patient and performed my own physical exam, as well as reviewed the documentation and edited where necessary. I have discussed in detail with the resident / student the findings and plan of treatment as documented by the resident / student and edited their note. I agree with their findings and treatment plan and have edited their documentation. Frantz Fuentes DO Apr 07, 2021 08:50 COLE BELL MD Apr 08, 2021 12:55
[2021-04-07] MEDS: NYSTATIN 100,000 UNITS/GM TOPICAL PWD 15 GM TOP SCH (09:00)
[2021-04-07] MEDS: LACTOBACILLUS ACIDOPHILUS CAP (BACID) PO SCH (10:42)
[2021-04-07] MEDS: HEPARIN SOD (PORCINE) 5000UNITS/ML 1ML VIAL/SYRINGE SQ SCH ×2 (10:44→21:06)
[2021-04-07] MEDS: MIRALAX *UNIT DOSE* 17GM PACKET PO SCH ×2 (10:44→21:05)
--- NOTE | 2021-04-07 12:39 | CR ---
CONSULTATION DATE: 04/06/2021 HISTORY OF PRESENT ILLNESS: The patient is a 71-year-old male who presented to the Emergency Room with fevers and pelvic pain. He was found to have large bilateral inguinal hernias as well as a UTI due to bladder outlet obstruction. He had a catheter placed in his bladder and since then he has been doing well. He has never had any abdominal complaints. No nausea or vomiting. No problems with bowel movements. He is also COVID positive. I was informed of his hernias on admission to the ER, however I told him that we do not operate on patients with COVID unless it is an emergency and since he is asymptomatic from his chronic large hernias there is no need for any consult at that time. During his inpatient stay he has had significant social issues; he has not been to a doctor in about 50 years or more and the family is concerned that if he leaves the hospital he will never come back to get his hernias fixed, therefore they requested that I speak with them. I spoke with the daughter for about a half an hour on the phone and probably another 20 minutes on the phone with his son. I explained to them in detail how his hernias are large resulting in loss of domain of his abdomen. Surgical repair would be very extensive, would take more than a month of planning to do so and on top of that we would not do it when he has any respiratory issues or COVID nor would I be able to do the procedure. I would have to have him follow-up with my partner, Dr. Caal. On top of that, his urinary outlet obstruction that he currently has is likely secondary to his prostate and not the hernia, so there is absolutely no indication for any type of surgery for him at this point. I understand he has these social issues and will not be able to come back to the hospital but this type of extensive procedure requires outpatient planning and there is just no possible way to do that at this point. I explained that in detail to both the daughter and the son. I think they understand, they are just still concerned that he is never going to get any follow-up when he leaves here. I recommended follow-up with Social Work and Case Management. I also spoke with the Hospitalist once I got off the phone with them and recommended that they consult PFS for him and also Urology to see if his prostate could be worked up while he is here. At this time, there is absolutely nothing we can do for his hernia, it is not possible to fix it at this time due to his loss of domain of the abdomen and surgical planning again would take too much time, there is no way that could be done right now, it would have to be done over weeks as an outpatient. I think they understand that and they can follow-up with Dr. Caal when they leave here if they get Mr. Moran to agree to come in and be seen.
[2021-04-07] MEDS: MORPHINE 2 MG/ML 1ML VIAL (J2270) IV PRN (17:12)
[2021-04-07] MEDS ORDERED: NALOXONE INJ 0.4MG/1ML VIAL (J2310 PER 1MG) As Ordered ONE (17:58)
[2021-04-07] MEDS ORDERED: NALOXONE INJ 0.4MG/1ML VIAL (J2310 PER 1MG) IV STA (18:03)
--- NOTE | 2021-04-07 19:15 | REPVR ---
PROCEDURE INFORMATION: Exam: CT Abdomen And Pelvis Without Contrast Exam date and time: 04/07/2021 6:27 PM Age: 71 years old Clinical indication: Abdominal pain; Additional info: Abdominal pain in setting of severe inguinal hernias. TECHNIQUE: Imaging protocol: Computed tomography of the abdomen and pelvis without contrast. Radiation optimization: All CT scans at this facility use at least one of these dose optimization techniques: automated exposure control; mA and/or kV adjustment per patient size (includes targeted exams where dose is matched to clinical indication); or iterative reconstruction. COMPARISON: CT ABD PELVIS W/O CONTRAST 04/04/2021 4:58 PM FINDINGS: Lungs: Coarse bibasilar ground-glass, semi-solid and solid pulmonary parenchymal opacities. Several associated with lower lobe airways suggesting changes related to chronic airway disease. Possibility of acute or subacute infection not excluded. Two nodular lesions demonstrated in the lower lobes measure 9.5 mm on the right and 8 mm on the left. Correlation with thoracic CT suggested if clinically desired. Mediastinal space: There is increased circumferential thickening of the wall of the distal esophagus. There is a small a moderate sliding hiatal hernia. Liver: Normal. No mass. Gallbladder and bile ducts: Normal. No calcified stones. No ductal dilation. Pancreas: Normal. No ductal dilation. Spleen: Normal. No splenomegaly. Adrenal glands: Normal. No mass. Kidneys and ureters: There is severe bilateral hydroureteronephrosis which can be traced to the level of the mid pelvis where visualization distal to this is obscured. Stomach and bowel: Unremarkable. No obstruction. No mucosal thickening. Appendix: No evidence of appendicitis. Intraperitoneal space: Unremarkable. No free air. No significant fluid collection. Vasculature: Unremarkable. No abdominal aortic aneurysm. Lymph nodes: Unremarkable. No enlarged lymph nodes. Urinary bladder: See "Soft tissues" finding. Reproductive: The prostate gland demonstrates marked hyperplasia. Bones/joints: Unremarkable. No acute fracture. Soft tissues: Miguel catheter demonstrated within the urinary bladder which is displaced to the right secondary to traction of the anterior margin of the bladder into a right inguinal hernia. The bladder demonstrates diffuse wall thickening. Possibility of a bladder neoplasm to be excluded. Right inguinal hernia contains portion of the urinary bladder at its mouth with fluid-filled structure within the hernia which may represent a loop of bowel versus entrapped fluid. Incarceration to be excluded clinically. There appears to be a massive left inguinal hernia multiple small large bowel loops displaced into the left hemiscrotum. Rectal floor prolapse involving the anterior, middle and posterior compartments. Other findings: Cachexia limits evaluation of abdominal pathology secondary to lack of oral and intravenous contrast media. IMPRESSION: 1. Thickened wall of the distal esophagus. Finding may be related to reflux esophagitis however an esophageal neoplasm should be excluded clinically. 2. Cachexia limits evaluation of abdominal pathology secondary to lack of oral and intravenous contrast media. 3. There is severe bilateral hydroureteronephrosis which can be traced to the level of the mid pelvis where visualization distal to this is obscured. Finding likely secondary to bilateral ureteral compression in the pelvis likely at the level of the UV junctions. 4. Miguel catheter demonstrated within the urinary bladder which is displaced to the right secondary to traction of the anterior margin of the bladder into a right inguinal hernia. The bladder demonstrates diffuse wall thickening. Possibility of a bladder neoplasm to be excluded. 5. Marked prostatic hyperplasia. Prostatic neoplasm to be excluded clinically. 6. Right inguinal hernia contains portion of the urinary bladder at its mouth with fluid-filled structure within the hernia which may represent a loop of bowel versus entrapped fluid. Incarceration to be excluded clinically. 7. Massive left inguinal hernia with multiple small large bowel loops descending into the left hemiscrotum. 8. Rectal floor prolapse involving the anterior, middle, and posterior compartments. Electronically signed by: Rick Muñoz On 04/07/2021 19:15:13 PM
[2021-04-07] MEDS: cefTRIAXone SOD 1 GM in D5W MINI-BAG PLUS 50 ML IV SCH (21:06)
[2021-04-07] MEDS: D5W/0.9% SODIUM CHLORIDE 1,000 ML IV SCH ×2 (21:06→23:07)
[2021-04-07 21:43] LABS: ABG BASE EXCESS -1.1 (-2.0-2.0); ABG HCO3 22.2 MEQ/L (22.0-26.0); ABG O2 SATURATION 95.7 % (95.0-99.0); ABG PARTIAL PRESSURE CO2 32.4 mmHg (35.0-45.0); ABG PARTIAL PRESSURE O2 75.7 mmHg (75.0-100.0); ABG STANDARD HCO3 23.5 MEQ/L (22.0-26.0); ABG TOTAL CO2 23.2 MEQ/L (23.0-31.0); ABG pH (ARTERIAL) 7.453 UNITS (7.350-7.450)
[2021-04-08 04:00] VITALS: BP 105/56
[2021-04-08 06:04] LABS: EOS % 0.1 % (0.0-3.0); HEMATOCRIT 31.9 % (42.0-52.0); HEMOGLOBIN 11.2 g/dl (13.5-17.5); LYMPH # 1.4 10^3/uL (1.5-5.0); LYMPH % 17.9 % (24.0-44.0); MEAN CORPUSCULAR HEMOGLOBIN 31.1 pg (27.0-33.0); MEAN CORPUSCULAR HGB CONC 35.1 g/dl (32.0-36.5); MEAN CORPUSCULAR VOLUME 88.6 fl (80.0-96.0); MONO # 0.6 10^3/uL (0.0-0.8); MONO % 6.9 % (2.0-8.0); NEUTROPHILS # 5.9 10^3/uL (1.5-8.5); NEUTROPHILS % 74.5 % (36.0-66.0); PLATELET COUNT, AUTOMATED 339 10^3/uL (150-450); WHITE BLOOD COUNT 7.9 10^3/uL (4.0-10.0)
[2021-04-08 06:14] LABS: INR 1.09; PROTHROMBIN TIME 14.6 SECONDS (12.7-14.5)
[2021-04-08 06:15] LABS: PARTIAL THROMBOPLASTIN TIME 39.9 SECONDS (25.9-37.0)
[2021-04-08 06:38] LABS: ALBUMIN 1.6 GM/DL (3.2-5.2); BILIRUBIN,DIRECT 0.2 MG/DL (0.0-0.2); BILIRUBIN,TOTAL 0.5 MG/DL (0.2-1.0); CALCIUM LEVEL 7.9 MG/DL (8.8-10.2); CREATININE FOR GFR 1.58 MG/DL (0.70-1.30); POTASSIUM SERUM 3.6 MEQ/L (3.5-5.1); TOTAL PROTEIN 6.6 GM/DL (6.4-8.2)
--- NOTE | 2021-04-08 08:53 | IPNPDOC ---
Text Note Date of Service The patient was seen on 04/08/21. NOTE Subjective: This is hospital day 5 for patient with no known medical history. Patient presented with abdominal discomfort and was found to have a UTI per urinalysis in the ED. Patient was also found to be Covid positive. Patient reports that he would appreciate oatmeal for all 3 meals of the day. He had a bowel movement two days ago. He refused his miralax yesterday. General surgery spoke with the family yesterday who wants medical team meeting. Urology was consulted yesterday, who stated that if the patient is not having any urinary retention there is no indication for urology input at this time. Miguel catheter balloon was managed again yesterday and now there is no leak around the Miguel. Objective: Vital signs: See below General: Patient is in no acute distress at this time however resists from any sudden movement due to abdominal discomfort. Patient is alert and oriented x4 to self, place, time, and situation. However patient does have expressive aph homero that started in 2018 per notes, and patient is able to tell me this as well. HEENT: Normocephalic, atraumatic, moist mucous membranes. Neck: No lymphadenopathy or thyromegaly Cardiac: Regular rate and rhythm, no murmurs, normal S1, normal S2 Pulm: Coarse respiratory sounds bibasilar. No wheezes, rhonchi. Abd: Large bilateral inguinal hernias present. Mild abdominal tenderness in suprapubic region, soft abdomen, non-distended. Ext: No edema of bilateral legs present. Assessment/plan: 71-year-old male without a medical history because he has not been seen since the 1970s, presents with abdominal discomfort. His clinical picture is complicated by bilateral inguinal hernias present for the past 20 to 30 years. #UTI Continue ceftriaxone, antibiotic day 4. Urine culture shows E. coli growth sensitive to ceftriaxone. Continue to monitor intake and output daily #Bilateral inguinal hernias Surgery was consulted, who stated that the patient will be seen in the outpatient setting by Dr. Caal, upon discharge. Continue to monitor stool output. MiraLAX twice daily has been ordered to ensure stool output Dulcolax daily as needed for constipation. Approximately around 4:30 PM on 04/07/2021, patient developed abdominal pain that he described as severe Patient was given 2 mg morphine IV Patient subsequently was unresponsive except to sternal rub with vital signs remaining stable (afebrile, normotensive, normal heart rate, oxygen saturation 96% on room air) Patient was given 0.4 mg Narcan, the symptoms subsided When patient drinks water, there is immediate fluid output around the urethra that does not come through the catheter. Because the patient has incontinence at baseline, this is most likely related to his chronic longstanding bilateral inguinal hernias. #Covid pneumonia Oxygen therapy titration as needed Patient is oxygenating well on room air at this time, and since admission. Monoclonal antibody transfused Procalcitonin on admission was 0.17 CRP level 7.48, ferritin level 1606 upon admission, increased to 200404/07/2021, consistent with Covid #RAJWINDER, improving. Admission [id number] creatinine level 2, baseline unknown Creatinine decreased to 1.58 Continue to monitor I's and O's Continue to monitor urinary output Avoid nephrotoxic agents #Poor oral intake Stop low residue diet due to possibility of incarceration of hernia, since patient developed abdominal pain around 4:30 PM Keep patient n.p.o. Administered 1L D5 normal saline at maintenance dose 125 mL/h with follow-up glucose check at midnight. #Deconditioning Patient is able to ambulate at baseline Consider physical therapy #Questionable neoplasm of prostate on CT PSA 1800s. Urology consult placed. Urologist has spoken with the family about high likelihood of stage 4 metastatic prostate cancer. #Hydroureteronephrosis Stable imaging between April 04 and April 07 no increase in renal pelvis measurements, upon discussion with Dimas jeffrey. Urology consulted Urology will be discussing with the family about options. #Patient/family centered care DaughterTonya, to be reached at [phone]. #Palliative care Palliative care consult placed due to multiple concerns of neoplasm including in the bladder and prostate. DVT prophylaxis: Heparin subcutaneous. CODE STATUS: DNR/DNI Disposition: Inpt status. Awaiting clinical improvement. VS,Fishbone, I+O VS, Fishbone, I+O Laboratory Tests 04/07/21 17:39 04/08/21 05:50 Vital Signs Date Time Temp Pulse Resp B/P (MAP) Pulse Ox O2 Delivery O2 Flow Rate FiO2 04/08/21 04:00 97.8 62 18 105/56 (72) 94 Room Air I&O- Last 24 Hours up to 6 AM 04/08/21 06:00 Intake Total 1400 ml Output Total 1326 ml Balance 74 ml GME ATTESTATION GME ATTESTATION My faculty preceptor for this patient encounter was physically present during the encounter and was fully available. All aspects of the patient interview, examination, medical decision making process, and medical care plan development were reviewed and approved by the faculty preceptor. The faculty preceptor is aware and concurs with the plan as stated in the body of this note and will attest to such by his/her cosignature. ATTENDING NOTE I, Cole Bell MD, have independently examined this patient and performed my own physical exam, as well as reviewed the documentation and edited where necessary. I have discussed in detail with the resident / student the findings and plan of treatment as documented by the resident / student and edited their note. I agree with their findings and treatment plan and have edited their documentation. My addendum is as below This is a 71-year-old male who presented to the ER with fevers or abdominal pain. The patient also had a CT scan of abdomen pelvis which showed that the patient is having a very large inguinal hernia but no incarceration at this time. There also was a possible urinary outlet obstruction likely secondary to his prostate for which a Miguel was placed in. The patient has been eating and drinking okay and has been having minimal bowel movements and for that reason after detailed surgical discussions with Dr. Hayes he stated that the patient is not a surgical candidate and this all could be followed up as an outpatient. I have had a detailed discussion with the daughter Tonya multiple times and Dr. Hayes also has spoken to her. The patient also was found to have a PSA of 1800 and there is a possibility that the patient has metastatic prostate cancer. Dr. Levin was consulted and he also spoke with the family in detail regarding the possibility of an outpatient biopsy and possible chemotherapy as an outpatient. Both surgery as well as urology deemed that the patient is not a surgical candidate at this time. The patient has been continued on oral diet which is in the low residual diet and he has been having very minimal bowel movements. On 04/07/2021 the patient had right lower quadrant pain along the hernia site and for that reason a CT scan of the abdomen pelvis was done which showed that the patient has possible irregularities of the bladder wall concerning for possible metastatic disease as well as bilateral hydroureteronephrosis which can be traced to the level of mid pelvis but with comparison to the previous CAT scan couple of months back this is almost the same we confirmed this with radiology as well. There are also 2 nodules or lesions demonstrated in the lower lobes of the lungs measuring 9.5 mm on the right and 8 mm on the left this also needs to be followed up as an outpatient The patient has poor prognosis with multiple comorbidities going on at this time including a irrepairable hernia of the left inguinal region along with possible metastatic prostate cancer with rectal prolapse and for that reason palliative care will be involved as well. The patient is alert oriented to time place and person and can make his own decisions and all this information was given to him in detail. He gives verbal understanding and this all has been conveyed to his family by the hospitalist team as well including his son and daughter. The hospitalist team will continue to follow this patient Frantz Fuentes DO Apr 08, 2021 08:53 COLE BELL MD Apr 08, 2021 12:49
[2021-04-08] MEDS: MIRALAX *UNIT DOSE* 17GM PACKET PO SCH ×2 (09:00→21:11)
[2021-04-08] MEDS: LACTOBACILLUS ACIDOPHILUS CAP (BACID) PO SCH (09:00)
[2021-04-08] MEDS: NYSTATIN 100,000 UNITS/GM TOPICAL PWD 15 GM TOP SCH (11:05)
[2021-04-08] MEDS: HEPARIN SOD (PORCINE) 5000UNITS/ML 1ML VIAL/SYRINGE SQ SCH ×2 (11:05→21:11)
[2021-04-08 14:00] VITALS: BP 110/65
[2021-04-08] MEDS: D5W/0.9% SODIUM CHLORIDE 1,000 ML IV SCH ×2 (14:42→21:11)
[2021-04-08 20:00] VITALS: BP 126/71
[2021-04-08] MEDS: cefTRIAXone SOD 1 GM in D5W MINI-BAG PLUS 50 ML IV SCH (21:10)
[2021-04-09] MEDS: D5W/0.9% SODIUM CHLORIDE 1,000 ML IV SCH (00:54)
[2021-04-09 04:00] VITALS: BP 118/69
[2021-04-09 07:07] LABS: BASO % 0.1 % (0.0-1.0); EOS % 0.2 % (0.0-3.0); HEMOGLOBIN 10.6 g/dl (13.5-17.5); LYMPH # 1.2 10^3/uL (1.5-5.0); LYMPH % 12.3 % (24.0-44.0); MEAN CORPUSCULAR HEMOGLOBIN 30.6 pg (27.0-33.0); MEAN CORPUSCULAR HGB CONC 34.2 g/dl (32.0-36.5); MEAN CORPUSCULAR VOLUME 89.6 fl (80.0-96.0); MONO # 0.6 10^3/uL (0.0-0.8); MONO % 6.6 % (2.0-8.0); NEUTROPHILS # 7.5 10^3/uL (1.5-8.5); NEUTROPHILS % 79.8 % (36.0-66.0); PLATELET COUNT, AUTOMATED 365 10^3/uL (150-450); RED BLOOD COUNT 3.46 10^6/uL (4.30-6.10); WHITE BLOOD COUNT 9.4 10^3/uL (4.0-10.0)
[2021-04-09 07:30] VITALS: BP 117/71
[2021-04-09 07:39] LABS: CALCIUM LEVEL 7.8 MG/DL (8.8-10.2); CREATININE FOR GFR 1.49 MG/DL (0.70-1.30); GLOMERULAR FILTRATION RATE 49.2 (>42); MAGNESIUM LEVEL 1.9 MG/DL (1.8-2.4); POTASSIUM SERUM 3.4 MEQ/L (3.5-5.1)
[2021-04-09] MEDS ORDERED: MORPHINE 10MG/0.5ML ORAL CONCENTRATE SOLUTION U/D SL PRN (08:55)
[2021-04-09] MEDS ORDERED: HYOSCYAMINE SULFATE 0.125 MG SUBL TABLET PO PRN (08:55)
[2021-04-09] MEDS ORDERED: BISACODYL 10 MG SUPP PR PRN (08:55)
[2021-04-09] MEDS ORDERED: ONDANSETRON 4 MG ORAL DISINTEGRATING TAB PO PRN (08:55)
[2021-04-09] MEDS ORDERED: SCOPOLAMINE 1MG TRANSDERMAL PATCH TOP PRN (08:55)
[2021-04-09] MEDS ORDERED: FLEET ENEMA PR PRN (08:55)
[2021-04-09] MEDS ORDERED: ONDANSETRON 4MG/2ML VIAL IV PRN (08:55)
[2021-04-09] MEDS ORDERED: ATROPINE SULFATE 1% OP SOLN 2 ML BTL SL PRN (08:55)
[2021-04-09] MEDS: LACTOBACILLUS ACIDOPHILUS CAP (BACID) PO SCH (09:00)
[2021-04-09] MEDS: ACETAMINOPHEN TAB 650MG DOSE (2X325MG) PO SCH ×4 (09:00→18:34)
[2021-04-09] MEDS ORDERED: MORPHINE 2 MG/ML 1ML VIAL (J2270) As Ordered ONE (09:01)
[2021-04-09] MEDS: MORPHINE 2 MG/ML 1ML VIAL (J2270) IV PRN ×2 (09:16→11:01)
[2021-04-09] MEDS: MIRALAX *UNIT DOSE* 17GM PACKET PO SCH ×2 (09:17→20:02)
[2021-04-09] MEDS: NYSTATIN 100,000 UNITS/GM TOPICAL PWD 15 GM TOP SCH (09:18)
--- NOTE | 2021-04-09 10:42 | IPNPDOC ---
Text Note Date of Service The patient was seen on 04/09/21. NOTE Subjective: This is hospital day 6 for patient with no known medical history, found to have CT abdomen findings consistent with the possibility of multiple neoplasms including the bladder and prostate. Patient's PSA was found to be in the 1800s. This a.m., patient told the nurse that he was uncomfortable. Although he did not inform the night nurse of his pain, he called his daughter and son (Tonya and Mina, respectively) to tell him that he was in pain all night. This morning, patient told me that he continues to have pain in his inguinal hernia sac. During the medical interview, patient's daughter and son were contacted via pt's phone via [employer] at pt's request, so that all communication could be clear. Patient's daughter and son have been talking [facility] and Dr. Levin consistently over the past couple days. After speaking with Dr. Levin about the high possibility of the patient's diagnosis being stage IV metastatic prostate cancer, patient's family and patient have agreed to continue management with comfort measures only. Patient confirmed that he would like to be comfortable and that includes that he does not get any IV fluids any IV antibiotics and only gets pain control. Patient also stated, "I want to go home and ." Patient also confirmed that he just wanted his pain to be managed. Patient's daughter, Tonya and son, Brian were on the phone via [employer] during this entire conversation. Objective: Vital signs: See below General: Patient is in no acute distress at this time however resists from any sudden movement due to abdominal discomfort. Patient is alert and oriented x4 to self, place, time, and situation. However patient does have expressive aphasia that started in 2018 per notes, and patient is able to tell me this as well. HEENT: Normocephalic, atraumatic, moist mucous membranes. Neck: No lymphadenopathy or thyromegaly Cardiac: Regular rate and rhythm, no murmurs, normal S1, normal S2 Pulm: Coarse respiratory sounds bibasilar. No wheezes, rhonchi. Abd: Large bilateral inguinal hernias present. Mild abdominal tenderness in suprapubic region, soft abdomen, non-distended. Ext: No edema of bilateral legs present. Assessment/plan: 71-year-old male without a medical history because he has not been seen since the , presents with abdominal discomfort. His clinical picture is complicated by bilateral inguinal hernias present for the past 20 to 30 years. 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 #UTI Urine culture shows E. coli growth sensitive to ceftriaxone. Patient received 4 days of ceftriaxone. Discontinue antibiotics consistent with METER INSTALLER AND REMOVER. #Bilateral inguinal hernias, concerns of prostate cancer. Surgery was consulted earlier during hospital course. Due to complicated case of hernia being present for the past 20 to 30 years, outpatient surgery would have to be considered. However, now patient management is METER INSTALLER AND REMOVER. Fleet enema every 3 days as needed for constipation. Approximately around 4:30 PM on 04/07/2021, patient developed abdominal pain that he described as severe Patient was given 2 mg morphine IV Patient subsequently was unresponsive except to sternal rub with vital signs remaining stable (afebrile, normotensive, normal heart rate, oxygen saturation 96% on room air) Patient was given 0.4 mg Narcan, the symptoms subsided When patient drinks water, there is immediate fluid output around the urethra that does not come through the catheter. Because the patient has incontinence at baseline, this is most likely related to his chronic longstanding bilateral inguinal hernias. #Pain Secondary to bilateral inguinal hernias and concerns of prostate cancer with metastasis Continue morphine sulfate 2 mg oral as needed for pain Continue 2 mg IV morphine as needed for pain, with careful observation #Covid Monoclonal antibody transfused on 04/05/2021. Procalcitonin on admission was 0.17 CRP level 7.48, ferritin level 1606 upon admission, increased to 200404/07/2021, consistent with Covid Follow-up Covid test ordered, if negative we can continue with hospice management. #RAJWINDER, improving. Admission [id number]-fc-pwdz creatinine level 2, baseline unknown Creatinine decreased to 1.49 on 04/09/2021 Stop all labs in setting of management being METER INSTALLER AND REMOVER #Deconditioning Patient is able to ambulate at baseline #Questionable neoplasm of prostate on CT PSA 1800s. Urology consulted. Urologist has spoken with the family about high likelihood of stage 4 metastatic prostate cancer. #Hydroureteronephrosis Stable imaging between April 04 and April 07 no increase in renal pelvis measurements, upon discussion with [facility]. Urology consulted Urology discussed high likelihood of stage IV metastatic prostate cancer. #Patient/family centered care Daughter, Tonya, to be reached at [phone]. #Palliative care Palliative care consult placed due to multiple concerns of neoplasm including in the bladder and prostate. Patient is now METER INSTALLER AND REMOVER. DVT prophylaxis: Heparin subcutaneous. CODE STATUS: DNR/DNI Disposition: METER INSTALLER AND REMOVER status. Pending negative Covid test so hospice management can commence. Patient will be transferred to [facility] status at this time. Discussion was made with Dr. Berumen, in the room present on face time with the patient's son and daughter. All parties are in agreement with the plan to attempt to get the patient home on home hospice and a negative Covid test. VS,Fishbone, I+O VS, Fishbone, I+O Laboratory Tests 04/09/21 05:59 Vital Signs Date Time Temp Pulse Resp B/P (MAP) Pulse Ox O2 Delivery O2 Flow Rate FiO2 04/09/21 09:26 18 96 Room Air 04/09/21 07:30 97.0 63 117/71 (86) I&O- Last 24 Hours up to 6 AM 04/09/21 05:59 Intake Total 1710 ml Output Total 1675 ml Balance 35 ml GME ATTESTATION GME ATTESTATION My faculty preceptor for this patient encounter was physically present during the encounter and was fully available. All aspects of the patient interview, examination, medical decision making process, and medical care plan development were reviewed and approved by the faculty preceptor. The faculty preceptor is aware and concurs with the plan as stated in the body of this note and will attest to such by his/her cosignature. ATTENDING NOTE I, Ta Berumen DO, have independently examined this patient and performed my own physical exam, as well as reviewed the documentation and edited where necessary. I have discussed in detail with the resident the findings and plan of treatment as documented by the resident and edited their note. I agree with their findings and treatment plan and have edited their documentation. I will continue to follow the patient during this hospital stay. Frantz Fuentes DO Apr 09, 2021 10:42 TA BERUMEN DO Apr 09, 2021 17:02
[2021-04-09] MEDS ORDERED: oxyCODONE 5MG TAB PO SCH (18:40)
[2021-04-09] MEDS: oxyCODONE 5MG TAB PO SCH (20:04)
[2021-04-10] MEDS: ACETAMINOPHEN TAB 650MG DOSE (2X325MG) PO SCH ×7 (01:00→23:40)
[2021-04-10] MEDS: MORPHINE 2 MG/ML 1ML VIAL (J2270) IV PRN ×4 (03:56→22:10)
[2021-04-10] MEDS: oxyCODONE 5MG TAB PO SCH ×5 (06:07→23:24)
[2021-04-10] MEDS: LORazepam 2 MG/ML VIAL IV PRN ×2 (06:39→23:40)
[2021-04-10] MEDS: NYSTATIN 100,000 UNITS/GM TOPICAL PWD 15 GM TOP SCH (09:00)
[2021-04-10] MEDS: MIRALAX *UNIT DOSE* 17GM PACKET PO SCH ×2 (09:00→20:48)
[2021-04-10] MEDS: LACTOBACILLUS ACIDOPHILUS CAP (BACID) PO SCH (09:00)
[2021-04-10] MEDS: LORazepam 1 MG TAB PO PRN (20:48)
[2021-04-11] MEDS: ACETAMINOPHEN TAB 650MG DOSE (2X325MG) PO SCH ×5 (06:29→21:11)
[2021-04-11] MEDS: NYSTATIN 100,000 UNITS/GM TOPICAL PWD 15 GM TOP SCH (07:55)
[2021-04-11] MEDS: LACTOBACILLUS ACIDOPHILUS CAP (BACID) PO SCH (07:55)
[2021-04-11] MEDS: MIRALAX *UNIT DOSE* 17GM PACKET PO SCH ×2 (07:55→21:11)
[2021-04-11] MEDS: oxyCODONE 5MG TAB PO SCH ×3 (07:55→17:25)
[2021-04-11] MEDS: MORPHINE 4 MG/ML 1ML VIAL/SYRINGE (J2270) IV PRN (10:52)
[2021-04-11] MEDS: LORazepam 1 MG TAB PO PRN (21:11)
[2021-04-12] MEDS: ACETAMINOPHEN TAB 650MG DOSE (2X325MG) PO SCH ×7 (00:29→21:00)
[2021-04-12] MEDS: oxyCODONE 5MG TAB PO SCH ×4 (00:29→18:00)
[2021-04-12] MEDS: LACTOBACILLUS ACIDOPHILUS CAP (BACID) PO SCH (08:57)
[2021-04-12] MEDS: NYSTATIN 100,000 UNITS/GM TOPICAL PWD 15 GM TOP SCH (08:58)
[2021-04-12] MEDS: MIRALAX *UNIT DOSE* 17GM PACKET PO SCH ×2 (08:58→21:00)
[2021-04-13] MEDS: ACETAMINOPHEN TAB 650MG DOSE (2X325MG) PO SCH ×6 (00:10→21:00)
[2021-04-13] MEDS: oxyCODONE 5MG TAB PO SCH ×4 (04:52→18:00)
[2021-04-13] MEDS: LACTOBACILLUS ACIDOPHILUS CAP (BACID) PO SCH (09:00)
[2021-04-13] MEDS: MIRALAX *UNIT DOSE* 17GM PACKET PO SCH ×2 (09:00→21:00)
[2021-04-13] MEDS: NYSTATIN 100,000 UNITS/GM TOPICAL PWD 15 GM TOP SCH (11:37)
[2021-04-13] MEDS: LORazepam 2 MG/ML VIAL IV PRN (13:35)
[2021-04-14] MEDS: ACETAMINOPHEN TAB 650MG DOSE (2X325MG) PO SCH ×7 (01:00→23:35)
[2021-04-14] MEDS: oxyCODONE 5MG TAB PO SCH ×5 (05:04→23:34)
[2021-04-14] MEDS: LACTOBACILLUS ACIDOPHILUS CAP (BACID) PO SCH (08:01)
[2021-04-14] MEDS: MIRALAX *UNIT DOSE* 17GM PACKET PO SCH ×2 (08:01→20:26)
[2021-04-14] MEDS: NYSTATIN 100,000 UNITS/GM TOPICAL PWD 15 GM TOP SCH (08:01)
[2021-04-14] MEDS: MORPHINE 4 MG/ML 1ML VIAL/SYRINGE (J2270) IV PRN (12:06)
[2021-04-15] MEDS: oxyCODONE 5MG TAB PO SCH ×3 (04:51→17:47)
[2021-04-15] MEDS: ACETAMINOPHEN TAB 650MG DOSE (2X325MG) PO SCH ×5 (04:51→20:10)
[2021-04-15] MEDS: LACTOBACILLUS ACIDOPHILUS CAP (BACID) PO SCH (09:00)
[2021-04-15] MEDS: NYSTATIN 100,000 UNITS/GM TOPICAL PWD 15 GM TOP SCH (09:18)
[2021-04-15] MEDS: MIRALAX *UNIT DOSE* 17GM PACKET PO SCH ×2 (09:18→20:10)
[2021-04-15] MEDS: LORazepam 1 MG TAB PO PRN ×2 (09:18→14:30)
[2021-04-15] MEDS: MORPHINE 4 MG/ML 1ML VIAL/SYRINGE (J2270) IV PRN ×2 (13:19→15:40)
[2021-04-15] MEDS: HYDROMORPHONE HCL 0.5 MG/ 0.5 ML SYRINGE (J1170 PER 1) IV PRN ×2 (16:54→23:29)
[2021-04-15] MEDS ORDERED: LORazepam 2 MG/ML VIAL As Ordered ONE (16:58)
[2021-04-15] MEDS: LORazepam 2 MG/ML VIAL IV PRN ×2 (17:02→23:29)
[2021-04-16] MEDS: ACETAMINOPHEN TAB 650MG DOSE (2X325MG) PO SCH ×6 (00:39→21:00)
[2021-04-16] MEDS: HYDROMORPHONE HCL 0.5 MG/ 0.5 ML SYRINGE (J1170 PER 1) IV PRN ×4 (04:24→18:31)
[2021-04-16] MEDS: LORazepam 2 MG/ML VIAL IV PRN ×3 (04:24→21:18)
[2021-04-16] MEDS: oxyCODONE 5MG TAB PO SCH ×4 (04:59→16:52)
[2021-04-16] MEDS: NYSTATIN 100,000 UNITS/GM TOPICAL PWD 15 GM TOP SCH (08:52)
[2021-04-16] MEDS: MIRALAX *UNIT DOSE* 17GM PACKET PO SCH ×2 (08:52→21:00)
[2021-04-16] MEDS: LACTOBACILLUS ACIDOPHILUS CAP (BACID) PO SCH (08:52)
--- NOTE | 2021-04-16 14:41 | IPNPDOC ---
Text Note Date of Service The patient was seen on 04/16/21. NOTE Subjective: Patient is a 71-year-old male without any significant PMHx who presented to the ER on 04/04 with complaints of abdominal pain. Patient is found to have bilateral inguinal hernias present for the last 20-30 years. During his hospital course he was found to have a complicated urinary tract infection and imaging had revealed evidence of bilateral hydronephrosis and suspicion for prostatic malignancy. Patient was ultimately transitioned to comfort measures on 04/09. Patient was incidentally found to be COVID19 positives during this hospital course and received monoclonal antibody infusion. Patient was seen and examined at the bedside. Patient recently comfortable, laying in bed, not in any acute distress. Objective: Vitals (See below) General: Lying in bed, appears comfortable, Awake / Alert Full exam not completed Assessment: Acute on Chronic Pain UTI RAJWINDER Bilateral inguinal hernia Suspicion for prostate CA Hydronephrosis Deconditioning COVID19; s/p Monoclonal antibodies GI prophylaxis DVT prophylaxis Plan: - Patient and transitioned to ENERGY BROKER status - Will continue with pain control and anxiety relief medications as ordered - Discussed with daughter yesterday and will again discuss with her today upon her arrival; about goals of care - Will escalate pain control regimen as needed Code status: - DNR / DNI - ENERGY BROKER Disposition: - Home with hospice pending negative COVID19 testing VS,Paulinobone, I+O VS, Paulinobone, I+O Vital Signs Date Time Temp Pulse Resp B/P (MAP) Pulse Ox O2 Delivery O2 Flow Rate FiO2 04/15/21 13:33 16 I&O- Last 24 Hours up to 6 AM 04/16/21 06:00 Intake Total 480 ml Output Total 800 ml Balance -320 ml ROSARIO FULTON MD Apr 16, 2021 14:41
[2021-04-17] MEDS: ACETAMINOPHEN TAB 650MG DOSE (2X325MG) PO SCH ×3 (00:18→08:10)
[2021-04-17] MEDS: HYDROmorphone HCL 2 MG/ML 1ML VIAL IV PRN ×5 (00:25→20:45)
[2021-04-17] MEDS: oxyCODONE 5MG TAB PO SCH ×2 (04:27)
[2021-04-17] MEDS ORDERED: LORazepam 2 MG/ML VIAL As Ordered ONE ×3 (07:01→18:00)
[2021-04-17] MEDS: LORazepam 2 MG/ML VIAL IV PRN ×3 (07:03→18:05)
[2021-04-17] MEDS: MIRALAX *UNIT DOSE* 17GM PACKET PO SCH (08:09)
[2021-04-17] MEDS: LACTOBACILLUS ACIDOPHILUS CAP (BACID) PO SCH (08:09)
[2021-04-17] MEDS: NYSTATIN 100,000 UNITS/GM TOPICAL PWD 15 GM TOP SCH (09:00)
[2021-04-18] MEDS: HYDROmorphone HCL 2 MG/ML 1ML VIAL IV PRN ×5 (01:01→14:20)
[2021-04-18] MEDS: LORazepam 2 MG/ML VIAL IV PRN ×5 (03:13→17:24)
[2021-04-18] MEDS ORDERED: LORazepam 2 MG/ML VIAL As Ordered ONE ×4 (08:25→17:21)
[2021-04-18] MEDS: NYSTATIN 100,000 UNITS/GM TOPICAL PWD 15 GM TOP SCH (09:00)
[2021-04-18] MEDS: HYDROMORPHONE HCL 0.5 MG/ 0.5 ML SYRINGE (J1170 PER 1) IV PRN ×2 (18:05→22:25)
[2021-04-19] MEDS: HYDROMORPHONE HCL 0.5 MG/ 0.5 ML SYRINGE (J1170 PER 1) IV PRN ×5 (03:29→18:15)
[2021-04-19] MEDS ORDERED: LORazepam 2 MG/ML VIAL As Ordered ONE ×2 (05:27→18:48)
[2021-04-19] MEDS: LORazepam 2 MG/ML VIAL IV PRN ×3 (05:31→21:40)
[2021-04-19] MEDS: NYSTATIN 100,000 UNITS/GM TOPICAL PWD 15 GM TOP SCH (08:47)
[2021-04-19] MEDS: HYDROmorphone HCL 2 MG/ML 1ML VIAL IV PRN (22:52)
[2021-04-20] MEDS: LORazepam 2 MG/ML VIAL IV PRN ×6 (02:34→22:08)
[2021-04-20] MEDS: HYDROmorphone HCL 2 MG/ML 1ML VIAL IV PRN ×2 (02:37→11:31)
[2021-04-20] MEDS: HYDROMORPHONE HCL 0.5 MG/ 0.5 ML SYRINGE (J1170 PER 1) IV PRN ×3 (08:24→20:21)
[2021-04-20] MEDS: NYSTATIN 100,000 UNITS/GM TOPICAL PWD 15 GM TOP SCH (09:00)
[2021-04-20] MEDS ORDERED: HYDROmorphone 2 MG TAB PO PRN (10:10)
[2021-04-20] MEDS ORDERED: HYDROmorphone 4MG TABLET PO PRN (10:10)
[2021-04-20] MEDS ORDERED: LORazepam 1 MG TAB PO PRN (10:10)
[2021-04-21] MEDS: HYDROMORPHONE HCL 0.5 MG/ 0.5 ML SYRINGE (J1170 PER 1) IV PRN ×4 (00:34→22:32)
[2021-04-21] MEDS: LORazepam 2 MG/ML VIAL IV PRN ×7 (06:19→23:39)
[2021-04-21] MEDS ORDERED: LORazepam 2 MG TAB PO PRN (08:00)
[2021-04-21] MEDS: NYSTATIN 100,000 UNITS/GM TOPICAL PWD 15 GM TOP SCH (09:00)
[2021-04-21] MEDS: HYDROmorphone HCL 2 MG/ML 1ML VIAL IV PRN ×3 (11:20→18:10)
--- NOTE | 2021-04-21 15:13 | IPNPDOC ---
Text Note Date of Service The patient was seen on 04/21/21. NOTE Subjective: Patient is a 71-year-old male who initially presented to hospital with COVID-19. Patient's daughter was at bedside and would like to speak with me to discuss the patient's care. Patient apparently was very anxious and agitated overnight last night. Patient had been comfortable prior to this. Patient is currently asleep and has been doing better since the Ativan was incr eased from 1 mg to 2 mg. Patient did not wake up through the examination. Patient's daughter and son who was on the phone who provided the history of the issues overnight and the fact that when he wakes up, the patient appears more agitated and more in pain. Patient has not been eating and drinking very much. Patient was transitioned to hospice level of care on 04/09/2021. Physical exam: Vitals: See below General: Sleeping male patient who is laying comfortably in bed. Rest of the exam was not fully completed due to the patient's KENNEL ASSISTANT status. Labs: See below Imaging: No new imaging is been performed Assessment/plan: 71-year-old male who initially presented with COVID-19 status post monoclonal antibodies who has a massive bilateral inguinal hernia with suspicion for metastatic prostate cancer who was transitioned to KENNEL ASSISTANT status on 04/09/2021. 1. Acute on chronic pain. Patient was transitioned to KENNEL ASSISTANT status. The patient's increased agitation, patient's Ativan was increased from 1 mg to 2 mg IV every 2 hours. Patient has not taken anything by mouth so we will continue to keep the patient here in the hospital until patient passes away. I did speak with the family about this and this is their wishes at this time. 2. COVID-19 status post monoclonal antibodies. Patient was never hypoxic. Patient had a negative Covid test 2 days ago. 3. Bilateral inguinal hernia. This is not amenable to surgery. Patient is currently on KENNEL ASSISTANT status. 4. Suspicion for prostate cancer. Patient most likely has prostate cancer according to urology. No further testing will be performed as patient is KENNEL ASSISTANT. DVT Prophylaxis: None Disposition: Patient will continue at hospice level care while in the hospital. VS,Fishbone, I+O VS, Fishbone, I+O Vital Signs Date Time Temp Pulse Resp B/P (MAP) Pulse Ox O2 Delivery O2 Flow Rate FiO2 04/19/21 18:25 18 04/19/21 08:57 Room Air I&O- Last 24 Hours up to 6 AM 04/21/21 06:00 Intake Total 0 ml Output Total 920 ml Balance -920 ml BOBBY MANZANARES DO Apr 21, 2021 15:13
[2021-04-21] MEDS ORDERED: LORazepam 2 MG/ML VIAL As Ordered ONE (15:21)
[2021-04-22] MEDS: LORazepam 2 MG/ML VIAL IV PRN ×3 (02:12→20:39)
[2021-04-22] MEDS: HYDROmorphone HCL 2 MG/ML 1ML VIAL IV PRN ×3 (07:58→22:18)
[2021-04-22] MEDS: NYSTATIN 100,000 UNITS/GM TOPICAL PWD 15 GM TOP SCH (09:00)
[2021-04-23] MEDS: HYDROMORPHONE HCL 0.5 MG/ 0.5 ML SYRINGE (J1170 PER 1) IV PRN ×3 (02:49→13:27)
[2021-04-23] MEDS: NYSTATIN 100,000 UNITS/GM TOPICAL PWD 15 GM TOP SCH (08:32)
[2021-04-23] MEDS: LORazepam 2 MG/ML VIAL IV PRN ×2 (17:14→20:18)
[2021-04-24] MEDS: HYDROMORPHONE HCL 0.5 MG/ 0.5 ML SYRINGE (J1170 PER 1) IV PRN ×3 (00:32→19:02)
[2021-04-24] MEDS: NYSTATIN 100,000 UNITS/GM TOPICAL PWD 15 GM TOP SCH (09:20)
[2021-04-24] MEDS: ACETAMINOPHEN 650 MG SUPP PR PRN ×2 (13:58→19:02)
[2021-04-25] MEDS: ACETAMINOPHEN 650 MG SUPP PR PRN (04:37)
--- NOTE | 2021-04-25 05:07 | IPNPDOC ---
Text Note Date of Service The patient was seen on 04/25/21. NOTE Alerted by staff that patient has unfortunately at 0457 on 04/25/21. VS,Fishbone, I+O VS, Fishbone, I+O Vital Signs Date Time Temp Pulse Resp B/P (MAP) Pulse Ox O2 Delivery O2 Flow Rate FiO2 04/24/21 19:12 16 04/23/21 03:15 Room Air I&O- Last 24 Hours up to 6 AM 04/25/21 06:00 Intake Total 0 ml Output Total 325 ml Balance -325 ml ALAN ADAMSON Apr 25, 2021 05:07
--- NOTE | 2021-04-25 10:41 | DS.PDOC ---
Discharge Summary General Date of Admission Apr 06, 2021 at 09:52 Date of Discharge 04/25/2021 Attending Physician: BOBBY MANZANARES DO Specialist/Consultants Involve: MARGARITO BELLO DO Discharge Summary PROCEDURES PERFORMED DURING STAY: None. ADMITTING DIAGNOSES: 1. Encephalopathy. 2. Left massive inguinal hernia and large right inguinal hernia 3. COVID-19 positive 4. Urinary tract infection with urinary retention 5. Elevated creatinine 6. Protein calorie malnutrition 7. Deconditioned elder 8. Abnormal CT finding with questionable neoplasm of prostate DISCHARGE DIAGNOSES: 1. Acute metabolic encephalopathy, improved. 2. Left massive inguinal hernia and right large inguinal hernia not amenable to surgical correction 3. COVID-19 positive, asymptomatic 4. Urinary tract infection with urinary retention status post urinary catheter being placed 5. Chronic kidney disease stage III 6. Severe protein calorie malnutrition with a BMI of 17.5 7. Deconditioning 8. Abnormal CT findings with questionable neoplasm of the prostate with possible metastasis 9. Hypernatremia 10. Hypokalemia 11. Elevated proBNP 12. Bilateral hydroureteronephrosis COMPLICATIONS/CHIEF COMPLAINT: Covid 19, Uti Urinary Tract Infection. HISTORY OF PRESENT ILLNESS: Patient is a 71-year-old male with an unknown medical history as he has not seen a physician since the 1970s who presented to the hospital with confusion. Patient's daughter who is at the bedside talking with the admitting provider provides most of the history. Patient had an acute mental status change in March 2018 and refused any medical services or work- up at that time. His baseline since March 2018 has been somewhat described as expressive aphasia and memory deficits. This got worse progressively over time. Patient also has an abdominal mass that has been causing discomfort to the patient when he typically needs to use compressive garments or manual support the area in order to urinate and does have significant constipation. Patient not on any medications. Patient is alert but only oriented x1-2 at the time of admission. Reportedly, patient lives with the son and both the patient's son and daughter assist with the patient's needs such as grocery shopping but describes the patient is able to shower for himself and is able to use the microwave to cook his food. Patient does endorse a baseline of trouble with stairs at times mostly related to the large inguinal hernias. Past week, patient sinus had a URI type symptoms. Patient then started having some generalized fatigue and appeared to have more challenging time doing his regular routine, requiring further assistance from son and daughter. Daughter reports going over the past few days the patient required more assistance remembering things and the patient is reported increased abdominal discomfort. Patient requested to the hospital in order to not be in pain. HOSPITAL COURSE: Patient was initially admitted to the COVID-19 floor as the patient was found to be positive for COVID-19. Patient never required any oxygen supplementation throughout his hospitalization. Patient had massive bilateral inguinal hernias which contains colon, loops of small bowel and portions of the urinary bladder. CT scan also showed the possibility for metastatic prostate cancer. Patient's family members wanted surgical intervention performed however, according to general surgery, the patient's inguinal hernias are too large in order for the patient to have surgical correction. Apparently, urology took a look at the CT scan and stated patient most likely has metastatic prostate cancer based on the elevated PSA and the finding on the CT scan. Patient who consistently was in pain due to the hernias and on 04/09/2021, the decision was made by the patient and the patient's family members to transition the patient to hospice care. I did speak with the patient, and both of his children about this plan and they were all in agreement to change the goal of care to comfort measures only. Patient remained in the hospital on comfort measures only. Patient did require increased pain medication increase antianxiety medication with Ativan but patient was able to have his pain and anxiety controlled with these increases. Patient at 4:57 AM on 04/25/2021 DISCHARGE MEDICATIONS: Please see below. ALLERGIES: Please see below. PHYSICAL EXAMINATION ON DISCHARGE: VITAL SIGNS: Please see below. Exam not completed as the patient overnight LABORATORY DATA: Please see below. IMAGING: Chest x-ray performed on 04/04/2021 was reported to show no evidence of acute cardiopulmonary pathology. CT of the abdomen pelvis performed without contrast on 04/04/2021 was reported to show bibasilar nodular groundglass and semisolid parenchymal infiltrates. Findings may represent presence of multifocal pneumonitis to be correlated clinically. There is mild splenomegaly with a maximal span of 13.5 cm. No foca l abnormalities demonstrated. Small hiatal hernia present. Massive left inguinal hernia containing both small and large bowel. Incarceration not excluded. Large right inguinal hernia containing portion of the urinary bladder as well as the distal right ureter and possibly collapsed bowel. The prostate gland demonstrates marked hyperplasia. Clinical correlation to exclude prostate neoplasm suggested. Marked prostatic hyperplasia. Inflammatory changes demonstrated in the perinephric spaces bilaterally. Findings may be chronic although clinical correlation to exclude acute inflammatory changes including infection suggested. Anasarca. Head CT performed without contrast on 04/04/2021 is reported to show large area of old stroke with extreme atrophy left temporal lobe and parietal lobe and including the insular cortex and external capsule. No evidence of acute bleed CT of the abdomen pelvis without contrast performed on 04/07/2021 was reported to show thickened wall of the distal esophagus. Findings may be related to reflux esophagitis however esophageal neoplasm should be excluded clinically. Cachexia limits evaluation of abdominal pathology secondary to lack of oral contrast and intravenous contrast media. There is severe bilateral hydroureteronephrosis which can be traced to the level of the mid pelvis were visualized distal to this is obscured. Findings likely secondary to bilateral ureteral compression in the pelvis likely at the level of the UV junctions. Miguel catheter demonstrates urinary bladder which is displaced to the right secondary to traction on the anterior margin of the bladder into the right inguinal hernia. The bladder demonstrates diffuse wall thickening. Possibility of bladder neoplasm to be excluded. Marked prostatic hyperplasia. Prostatic neoplasm to be excluded clinically. Right inguinal hernia contains a portion of the urinary bladder at his mouth with fluid-filled structure within the hernia which may represent a loop of bowel versus entrapped fluid. Incarceration to be excluded clinically. Massive left inguinal hernia with multiple small and large bowel loops descending into the left hemiscrotum. Rectal floor prolapse involving the anterior, middle, and posterior compartments PROGNOSIS: DISPOSITION: 20 . DISCHARGE CONDITION: . TIME SPENT ON DISCHARGE: 25 minutes. Vital Signs/I&Os Vital Signs Date Time Temp Pulse Resp B/P (MAP) Pulse Ox O2 Delivery O2 Flow Rate FiO2 04/24/21 19:12 16 04/23/21 03:15 Room Air I&O- Last 24 Hours up to 6 AM 04/25/21 06:00 Intake Total 0 ml Output Total 325 ml Balance -325 ml Discharge Medications No Active Prescriptions or Reported Meds Allergies Coded Allergies: Penicillins (Verified Allergy, Unknown, 04/04/21) BOBBY MANZANARES DO Apr 25, 2021 10:41
== END 2021-04-25 09:48 | disposition expired | DRG 254 ==
LOC: M ED 16:10 → EDBD 16:10 → M ED INP 20:41 → ENRESERV 04-05 00:14 → M 4MAIN 04-05 01:03 → OBSVTOIN 04-06 09:52 → M MSPAV 04-15 14:41
PROVIDERS: ADMIT Family Medicine; ATTEND Family Medicine
DX: K40.20 Bilateral inguinal hernia, without obstruction or gangrene, not specified as recurrent (principal); U07.1 COVID-19; E43 Unspecified severe protein-calorie malnutrition; N13.6 Pyonephrosis; N17.9 Acute kidney failure, unspecified; G93.41 Metabolic encephalopathy; E87.0 Hyperosmolality and hypernatremia; N39.0 Urinary tract infection, site not specified; C61 Malignant neoplasm of prostate; R47.01 Aphasia; N18.30 Chronic kidney disease, stage 3 unspecified; E87.6 Hypokalemia; Z68.1 Body mass index [BMI] 19.9 or less, adult; Z51.5 Encounter for palliative care; Z88.0 Allergy status to penicillin; Z87.891 Personal history of nicotine dependence; Z66 Do not resuscitate